=== PATIENT | male | born 1990 ===

== ENCOUNTER 2023-07-21 19:41 | Emergency (ER) | payer OTHER, SELFPAY ==
--- NOTE | ~2023-07-21 | US_ITS ---
EXAMINATION: US VENOUS ULTRASOUND WITH DOPPLER LOWER EXTREMITY, LEFT CLINICAL INFORMATION: Calf pain COMPARISON: None available. TECHNIQUE: Ultrasound of the deep veins is performed from the hip to the calf with compression sonography and color and pulse Doppler assessment. Spectral analysis with color-flow imaging is performed. FINDINGS: There is normal venous compression and respiratory variation and augmented flow. The visualized common femoral vein, superficial femoral vein, profunda femoral vein, popliteal vein, and the trifurcation region shows no evidence of deep venous thrombosis. There is no significant popliteal fossa cyst. If the patient's symptoms persist, followup ultrasound in 5 days 7 days might be of value to exclude proximal propagation from a non-visualized calf vein. US/US venous duplex LE LT IMPRESSION: No DVT demonstrated in the left lower extremity.
[2023-07-21 20:13] VITALS: BP 152/103; PULSE 82; RESP 18; TEMP 36.3; O2SAT 97; BMI 46.6
--- NOTE | 2023-07-21 20:19 | ED.GENADULT ---
HPI - General Adult General Chief complaint: Extremity Injury, Lower Stated complaint: Pain in left calf 3 days Time Seen by Provider: 07/21/23 20:57 Source: patient Mode of arrival: ambulatory Limitations: no limitations History of Present Illness HPI narrative: 33-year-old male came in for evaluation of left calf heating wave pain for the past 3 days, patient declined any trauma, no recent travel, no recent prolonged immobilization. No CP, no SOB. Related Data Allergies Allergy/AdvReac Type Severity Reaction Status Date / Time gabapentin [GABAPENTIN] Allergy Severe ANAPHYLAXIS Verified 07/21/23 20:13 shellfish derived Allergy Severe ANAPHYLAXIS Verified 07/21/23 20:13 [SHELLFISH DERIVED] codeine [CODEINE] Allergy Intermediate HALLUCINATI Verified 07/21/23 20:13 ON pregabalin [From LYRICA] Allergy Intermediate ANAPHYLAXIS Verified 07/21/23 20:13 Sulfa (Sulfonamide Allergy Intermediate RASH Verified 07/21/23 20:13 Antibiotics) [SULFA(SULFONAMIDE ANTIBIOTICS)] amoxicillin [AMOXICILLIN] Allergy Unknown RASH Verified 07/21/23 20:13 sulfamethoxazole Allergy Unknown RASH Verified 07/21/23 20:13 [From BACTRIM] trimethoprim [From BACTRIM] Allergy Unknown RASH Verified 07/21/23 20:13 Review of Systems Review of Systems: All other systems are reviewed and are negative Constitutional: Reports as per HPI and Reports no additional constitutional complaints Eyes: Reports as per HPI and Reports no additional eye complaints Reports system reviewed and no additional complaints, except as documented Cardiovascular: Reports as per HPI and Reports no additional cardiovascular complaints Respiratory: Reports as per HPI and Reports no additional respiratory complaints Gastrointestinal: Reports as per HPI and Reports no additional gastrointestinal complaints Genitourinary: Reports no additional female genitourinary complaints Musculoskeletal: Reports no additional musculoskeletal complaints Skin/Breast: Reports system reviewed and no additional complaints, except as docu Psychiatric: Reports no additional psychiatric complaints Endocrine: Reports no additional endocrine complaints Hematologic/Lymphatic: Reports no additional hematologic/lymphatic complaints Allergic/Immunologic: Reports no additional allergic/immunologic complaints Reports system reviewed and no additional complaints, except as documented and Reports Abnormal speech present [facility] Social History Social History Advance Directives: No Advance Directives Information Provided: No Physical Exam ED Vital Signs: Vital Signs - 24 hr 07/21/23 20:13 Temperature 97.3 F Pulse Rate 82 Respiratory Rate 18 Blood Pressure 152/103 H Pulse Oximetry 97 Oxygen Delivery Method Room Air BMI result Body Mass Index 46.6 Vital signs have been reviewed and appear to be correct. Blood pressure elevated. Heart rate normal. Respiratory rate normal. Temperature normal. Oxygen saturation normal. Appearance: Alert. Oriented X3. No acute distress. Head: Normal external exam. Normocephalic. Atraumatic. No Paiz signs noted. No raccoon eyes noted Eyes: PERRLA. EOMI. Conjunctiva and sclera normal. Eyelids normal. ENT: TM's Normal. Pharynx normal. Uvula midline. Moist mucous membranes. No trismus noted. No drooling noted. No muffled voice noted. Neck: Normal inspection. Neck supple. FROM. No adenopathy. Thyroid Normal. No meningeal signs. No neck mass noted. CVS: Normal heart rate and rhythm. Heart sound normal. No murmurs noted. Pulses normal throughout. Respiratory: No respiratory distress. Painless inspiration. Breath sounds normal. No wheezes/rales/rhonchi noted. Chest nontender. No accessory muscle usage noted or decreased air movement noted. Abdomen: Soft and nontender. Bowel sounds normal in all 4 quadrants. No distention noted. No organomegaly noted. No visible injury noted. Back: No CVA tenderness. Full range of motion noted. Skin: Skin warm and dry. Normal skin color. Normal skin turgor. No rashes/lesions/lacerations noted. Extremities: No lower extremity edema. Extremities exhibit normal range of motion. Extremities nontender. Neuro: Oriented X 3. Cranial nerve exam: II-XII are grossly intact No motor deficit. No sensory deficit. Reflexes normal. Course Course Course Narrative: This is an RME: Additional HPI, ROS, PE not included below will be deferred to primary provider. This is a [id number] presenting to the emergency department with a complaint of left calf pain x 3 days. No trauma, injury. Plan: US LLE Reevaluation(s) Reevaluation #1: Left calf pain for 3 days, no DVT on the ultrasound, no rhabdomyolysis. Time: 21:14 Medical Decision Making Differential Diagnosis Differential Diagnoses: The differential diagnosis associated with the presentation includes ( Left lower extremities DVT, rhabdomyolysis, electrolyte abnormality, severe anemia.) Admission/Observation Consideration of admission/observation: Escalation of care including admission/observation considered Lab Data MDM Lab Attestation statement: I reviewed the patient's lab results. 07/21/23 21:26 07/21/23 21:26 Labs: Lab Results 07/21/23 Range/Units 21:26 WBC 11.4 H (4.8-10.8) X10*3/uL RBC 4.85 (4.60-5.80) X10*6/uL Hgb 14.6 (14.0-18.0) g/dl Hct 42.9 (42.0-52.0) % MCV 88.5 (80.0-98.0) fL MCH 30.1 (27.0-33.0) pg MCHC 34.0 (31.0-36.0) g/dl RDW 13.3 (11.0-16.0) % Plt Count 303 (160-400) X10*3/uL MPV 10.0 (9.4-12.4) fL Immature Gran % (Auto) 0.3 (0.0-0.4) % Neut % (Auto) 53.7 (45-73) % Lymph % (Auto) 34.9 (20-40) % [place] % (Auto) 8.7 (2-11) % Eos % (Auto) 2.0 (0-4) % Baso % (Auto) 0.4 (0-2) % Lymph # (Auto) 4.0 (1.2-4.9) X10*3/uL [place] # (Auto) 1.0 (0.1-1.2) X10*3/uL Eos # (Auto) 0.2 (0.0-0.4) X10*3/uL Baso # (Auto) 0.0 (0.0-0.2) X10*3/uL Abs Immat Gran (auto) 0.03 (0.00-0.03) X10*3/uL Absolute Neuts (auto) 6.1 (2.0-8.3) x10*3/uL Absolute Nucleated RBC 0.000 (0.0-0.012) X10*3/uL Nucleated RBC % (auto) 0.0 (0.0-0.2) /100WBC Sodium 141 (135-145) mmol/L Potassium 3.8 (3.3-5.1) mmol/L Chloride 107 (96-108) mmol/L Carbon Dioxide 24 (22-29) mmol/L Anion Gap 14 (12-20) BUN 12 (9-16) mg/dL Creatinine 0.83 (0.5-1.4) mg/dL Estim Creat Clear Calc 157.0 Estimated GFR > 60 Random Glucose 86 (60-115) mg/dL Calcium 9.3 (8.4-10.2) mg/dL Total Creatine Kinase 118 (38-174) U/L Independent Interpretation I performed an independent interpretation of an: Ultrasound ( Left lower extremity ultrasound: No evidence of DVT.) Radiology Impression Discussion of test interpretation with radiology: I have reviewed the radiologist's reading. Discharge Plan Discharge Clinical Impression: Pain of left calf Patient Disposition: Home, Self-Care Instructions: Leg Pain (ED) Referrals: Everett Adam MD [Primary Care Provider] -
== END 2023-07-21 23:09 | disposition home or self-care (01) ==
PROVIDERS: Emergency Provider Emergency Medicine; PCP Family Medicine
DX: M79.662 Pain in left lower leg (principal)
CPT/HCPCS: 36415; 80048; 82550; 85025; 93971; 99282; 99284

== ENCOUNTER 2024-07-18 07:45 | Outpatient (AMB) | payer OTHER, SELFPAY ==
--- NOTE | 2024-07-18 08:01 | A.OFFVIS_ITS ---
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 Patient is not sure if it was due with an injury or just pain. Patient was referred by Neelima Beckett PA-C from [facility]. He states ongoing pain for a month and feels that it is getting worse. Patient tried taking pain medication with no relief. Allergies gabapentin [GABAPENTIN] Allergy (Severe, Verified 07/18/24 08:05) ANAPHYLAXIS shellfish derived [SHELLFISH DERIVED] Allergy (Severe, Verified 07/18/24 08:05) ANAPHYLAXIS codeine [CODEINE] Allergy (Intermediate, Verified 07/18/24 08:05) HALLUCINATION pregabalin [From LYRICA] Allergy (Intermediate, Verified 07/18/24 08:05) ANAPHYLAXIS Sulfa (Sulfonamide Antibiotics) [SULFA(SULFONAMIDE ANTIBIOTICS)] Allergy (Intermediate, Verified 07/18/24 08:05) RASH amoxicillin [AMOXICILLIN] Allergy (Unknown, Verified 07/18/24 08:05) RASH sulfamethoxazole [From BACTRIM] Allergy (Unknown, Verified 07/18/24 08:05) RASH trimethoprim [From BACTRIM] Allergy (Unknown, Verified 07/18/24 08:05) RASH HPI 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 The patient was seen by Neelima Beckett PA-C at [facility] on 06/09/24 for left knee pain, which has been worse for the past 3 weeks. He encountered an injury prior to the onset of the pain. An order for an MRI was placed for further evaluation and was referred to [facility]. While in the office today, the patient reports experiencing left knee pain for about a month and is getting worse. He has tried pain medications without any relief. He is uncertain whether the pain is due to an injury or simply pain. 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 No ecchymosis, erythema, or joint effusion. Full ROM. Slight tenderness to palpation along the medial and lateral aspect of the patella. NVI. Assessment & Plan Assessment & Plan (1) Contusion of left knee: Code(s): S80.02XA - Contusion of left knee, initial encounter Category: Medical Plan Mr Potts is a 34-year-old male who presents in the office today, as a new patient, for an evaluation of left knee pain. The patient was seen by Neelima Beckett PA-C at [facility] on 06/09/24 for left knee pain, which has been worse for the past 3 weeks. He encountered an injury prior to the onset of the pain. An order for an MRI was placed for further evaluation and was referred to [facility]. While in the office today, the patient reports experiencing left knee pain for about a month and is getting worse. He has tried pain medications without any r elief. He is uncertain whether the pain is due to an injury or simply pain. The patient was provided with a reaction knee brace, off the shelf today. We discussed the role of physical therapy; however, the patient declined at this time. He will contact the office should he have persistent pain without any improvement, and then I will place an order for PT. Follow-up will be PRN, or sooner if needed. X-rays of the left knee which were obtained while in the office today and were reviewed by me, Liat Parham PA-C, revealed: negative for any acute fracture or dislocation. MRI of the left knee, obtained on 07/18/24, revealed: 1. No evidence of meniscus or cruciate ligament tear. 2. Full-thickness chondral fissure in the inferior aspect of the lateral patellar facet with adjacent subchondral cyst and subchondral marrow edema. Orders: Orders XR knee RT 1V 07/18/24 M25.569 - Pain in unspecified knee PT Evaluation and Treatment Today S80.02XA - Contusion of left knee, initial encounter Patient Instructions: Scribed by Shaylee Oviedo, medical laboratory technician, for Liat Parham PA-C on 07/18/24 at 8:16 am EST. Coding Level of Care Code New Pt Level 3 (11796) Diagnoses Contusion of left knee S80.02XA
== END 2024-07-18 08:31 | disposition home or self-care (01) ==
PROVIDERS: PCP Family Medicine; Visit Provider Physician Assistant
DX: S80.02XA Contusion of left knee, initial encounter (principal)
CPT/HCPCS: 99203

== ENCOUNTER 2024-07-18 10:48 | Outpatient (REF) | payer OTHER, SELFPAY ==
--- NOTE | ~2024-07-18 | XR_ITS ---
EXAMINATION: XR KNEE, RIGHT CLINICAL INFORMATION: M25.569 - Pain in unspecified knee COMPARISON: None available. TECHNIQUE: Three views of the right knee. FINDINGS: No fracture or joint effusion. Alignment is anatomic. Joint spaces are maintained. No abnormal soft tissue calcification. XR/XR knee RT 1V IMPRESSION: Normal right knee. Electronically signed by: Ysabel Paz MD 09/24/2024 06:27 PM EST
--- NOTE | ~2024-07-18 | XR_ITS ---
EXAMINATION: XR KNEE LEFT 2 VIEWS CLINICAL INFORMATION: Pain in unspecified knee M25.569. COMPARISON: None available TECHNIQUE: Two views of the left knee. FINDINGS: No acute fracture or dislocation. No significant medial or lateral joint space narrowing. There is no evidence for osteochondral lesion. No joint effusion is observed. IMPRESSION: No acute process. Electronically signed by: Alexandro Saba MD 09/25/2024 11:58 AM SUZANNE
== END 2024-07-18 10:49 | disposition home or self-care (01) ==
LOC: HO.HOSX 10:48
PROVIDERS: Visit Provider Physician Assistant
DX: M25.569 Pain in unspecified knee (principal)
CPT/HCPCS: 73560; 73562

== ENCOUNTER 2025-09-06 20:14 | Emergency (ER) | payer OTHER, SELFPAY ==
--- NOTE | ~2025-09-06 | XR_ITS ---
CLINICAL HISTORY: chest pain 2 view chest x-ray Comparison: None provided Findings: No consolidation or pleural effusion. Normal size heart. No acute fracture. IMPRESSION: 1. No acute findings. This document has been electronically signed by: An Lopez MD on 09/06/2025 21:11:04
--- NOTE | 2025-09-06 20:17 | ECG_ITS ---
Test Reason : high blood pressure Blood Pressure : */* mmHG Vent. Rate : 80 BPM Atrial Rate : 80 BPM P-R Int : 178 ms QRS Dur : 88 ms QT Int : 378 ms P-R-T Axes : 46 56 67 degrees QTcB Int : 435 ms Normal sinus rhythm Normal ECG When compared with ECG of 29-Aug-2017 16:18, T wave inversion no longer evident in Inferior leads Referred By: Roxie Rojas Electronically Signed By: Sal Mclaughlin
[2025-09-06 20:32] VITALS: BP 183/123; PULSE 101; RESP 20; TEMP 37; O2SAT 95; BMI 45.5
--- NOTE | 2025-09-06 20:36 | ED_ITS ---
HPI - General Adult General Chief complaint: Chest Pain Stated complaint: CP, increased BP Time Seen by Provider: 09/06/25 21:32 Source: patient, RN notes reviewed and old records reviewed Mode of arrival: ambulatory Limitations: no limitations History of Present Illness ED Provider: Baldomero HPI narrative: 35-year-old male past medical history significant for obesity, hypertension presents for evaluation of high blood pressure. The patient reports that he has had high blood pressure for last 3 days. He reports on Sunday while at work his blood pressure was ?200/100. He states that he spoke to his primary doctor when he was sent home from work who had him increase his clonidine The patient reports that he also had metoprolol added to his regimen last month. The patient also endorses midsternal chest pain for the last 3 days as well. He complains of a mild headache. Denies any fevers, chills cough. Denies any elevation of the area Related Data Home Medications ?Medication ?Instructions ?Recorded ?Confirmed clonidine HCl 0.1 mg tablet 0.1 mg PO BID 07/18/24 clonidine HCl 0.2 mg tablet mg PO 07/18/24 epinephrine 0.3 mg/0.3 mL IM 07/18/24 injection, auto-injector lisinopril 30 mg tablet 30 mg PO DAILY 07/18/24 lorazepam 1 mg tablet 1 mg PO DAILY PRN 07/18/24 omeprazole 20 mg capsule,delayed 20 mg PO DAILY release Allergies Allergy/AdvReac Type Severity Reaction Status Date / Time gabapentin (GABAPENTIN) Allergy Severe ANAPHYLAXIS Verified 09/06/25 20:34 shellfish derived (SHELLFISH Allergy Severe ANAPHYLAXIS Verified 09/06/25 20:34 DERIVED) codeine (CODEINE) Allergy Intermediate HALLUCINATI Verified 09/06/25 20:34 ON pregabalin (From LYRICA) Allergy Intermediate ANAPHYLAXIS Verified 09/06/25 20:34 Sulfa (Sulfonamide Allergy Intermediate RASH Verified 09/06/25 20:34 Antibiotics) (SULFA(SULFONAMIDE ANTIBIOTICS)) amoxicillin (AMOXICILLIN) Allergy Unknown RASH Verified 09/06/25 20:34 sulfamethoxazole (From Allergy Unknown RASH Verified 09/06/25 20:34 BACTRIM) trimethoprim (From BACTRIM) Allergy Unknown RASH Verified 09/06/25 20:34 Review of Systems 2 Constitutional: Constitutional: Denies body ache(s), Denies chills, Denies fever(s) and Reports headache(s) Eyes: Eyes: Denies blurry vision ENT: Denies vertigo, Denies dizziness and Reports headache(s) Cardiovascular: Cardiovascular: Reports chest pain, Denies chest pain at rest and Denies dyspnea on exertion Respiratory: Respiratory: Denies cough and Denies dyspnea on exertion Gastrointestinal: Gastrointestinal: Denies abdominal pain, Denies nausea and Denies vomiting Musculoskeletal: Musculoskeletal: Denies back pain Integumentary/Breasts: Skin/Breast: Denies rash Neurologic: Denies vertigo, Denies dizziness and Reports headache(s) Psychiatric: Psychiatric: Reports anxiety PMFSH Social History Social History (Updated 07/18/24 @ 08:08 by Radha Menezes) Alcohol intake: never Patient Tobacco Use Status: Never used Tobacco Smoked in Last 30 Days: No Use of substances other than those prescribed or required for medical reasons: No Advance Directives: No Advance Directives Information Provided: No Current occupational status: employed 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 Exam ED Vital Signs: Vital Signs - 24 hr 09/06/25 20:32 09/06/25 21:35 Temperature 98.6 F Pulse Rate 101 H 85 Respiratory Rate 20 19 Blood Pressure 183/123 H 174/108 H Pulse Oximetry 95 95 Oxygen Delivery Method Room Air Room Air BMI result Body Mass Index 45.5 Const General: healthy appearing, comfortable, no acute distress, alert and awake Nutritional Appearance: well nourished Orientation/consciousness: patient oriented x3 HENMT Head: Yes normocephalic and Yes atraumatic Eyes Eyelids: Yes eyelids normal Conjunctivae: conjunctivae normal Sclerae: sclerae normal Corneas: corneas normal Pupils: Equal, round and reactive pupils present EOM: EOMs intact bilaterally Neck Neck: Yes full ROM Resp Effort & Inspection: normal respiratory effort, able to speak in complete sentences and not labored Skin General skin exam: elasticity normal Neuro General: patient oriented x3 Cranial nerves: Yes Equal, round and reactive pupils present and Yes Bilaterally intact EOM present Cognition (Neuro): normal cognition Extrem Other: Moving all extremities well without any obvious deformities Course Course Course Narrative: Rapid medical examination performed in triage by Roxie Rojas PA-C: Patient is a 35 year old assigned male at presenting to the emergency department with high blood pressure and chest pain. Detailed physical exam and review of systems are deferred to the tariff expert. EKG, labs, imaging ordered. Patient placed back in the waiting room pending room availability and results. Reevaluation(s) Reevaluation #1: Patient's workup largely unremarkable, EKG is normal sinus rhythm without ectopy or ischemia. Troponin undetectable despite 3 days of chest pain, he rules out for ACS. The remainder of his workup was also reassuring. The patient's blood pressure improved to 174/102 without any intervention. The patient is on amlodipine, lisinopril, clonidine and metoprolol for his blood pressure. I asked him to discuss this with his primary doctor and they can proceed with alterations as necessary. Time: 22:53 Medical Decision Making Medical Decision Making [facility] Narrative: 35-year-old male presents for evaluation of high blood pressure and chest pain. He reports he has had midsternal chest pain for few days. His chest pain is reproducible on exam. His EKG is normal sinus rhythm with a rate of [address] changes. He had labs that did not show any significant abnormalities. Has a slight leukocytosis to 11.5 without a left shift. No significant anemia. Chemistries are within normal limits, his troponin is undetectable despite 3 days of chest pain, he rules out for ACS. He had a chest x-ray that shows no pleural effusions or infiltrates to explain his chest pain. No one in mediastinum. He has no respiratory symptoms. The patient's blood pressure was initially 183/123 which improved to 170 4/108 without any intervention. I discussed this with the patient and he is already on a fairly extensive antihypertensive regimen with close follow up as he has had his meds adjusted twice in the last month and a half. We will defer medication changes to his primary doctor Differential Diagnosis Differential Diagnoses: The differential diagnosis associated with the presentation includes Hypertension High blood pressure Anxiety Chest pain ACS Lab Data [facility] Lab Attestation statement: I reviewed the patient's lab results. As above 09/06/25 21:34 09/06/25 21:34 Labs: Lab Results 09/06/25 09/06/25 Range/Units 21:14 21:34 WBC 11.5 H (4.8-10.8) X10*3/uL RBC 5.12 (4.60-5.80) X10*6/uL Hgb 15.4 (14.0-18.0) g/dl Hct 44.6 (42.0-52.0) % MCV 87.1 (80.0-98.0) fL MCH 30.1 (27.0-33.0) pg MCHC 34.5 (31.0-36.0) g/dl RDW 13.2 (11.0-16.0) % Plt Count 289 (160-400) X10*3/uL MPV 10.3 (9.4-12.4) fL Immature Gran % (Auto) 0.2 (0.0-0.4) % Neut % (Auto) 67.7 (45-73) % Lymph % (Auto) 25.5 (20-40) % [place]ccre[place] % (Auto) 5.5 (2-11) % Eos % (Auto) 0.8 (0-4) % Baso % (Auto) 0.3 (0-2) % Lymph # (Auto) 2.9 (1.2-4.9) X10*3/uL [place] # (Auto) 0.6 (0.1-1.2) X10*3/uL Eos # (Auto) 0.1 (0.0-0.4) X10*3/uL Baso # (Auto) 0.0 (0.0-0.2) X10*3/uL Abs Immat Gran (auto) 0.02 (0.00-0.03) X10*3/uL Absolute Neuts (auto) 7.8 (2.0-8.3) x10*3/uL Absolute Nucleated RBC 0.000 (0.0-0.012) X10*3/uL Nucleated RBC % (auto) 0.0 (0.0-0.2) /100WBC PT 12.2 (11.2-13.5) SEC INR 1.0 (0.9-1.1) Sodium 141 (135-145) mmol/L Potassium 4.0 (3.3-5.1) mmol/L Chloride 107 (96-108) mmol/L Carbon Dioxide 22 (22-29) mmol/L Anion Gap 16 (12-20) BUN 8 L (9-16) mg/dL Creatinine 0.84 (0.5-1.4) mg/dL Estim Creat Clear Calc 150.1 Estimated GFR > 60 Random Glucose 94 (60-115) mg/dL Calcium 8.8 (8.4-10.2) mg/dL Magnesium 2.2 (1.6-2.6) mg/dL Total Bilirubin 0.7 (0.0-1.0) mg/dL AST 33 (5-37) U/L ALT 32 (0-40) U/L Alkaline Phosphatase 73 (39-117) U/L Troponin I High Sens < 2.7 (<3.5-35.0) ng/L Total Protein 7.7 (6.5-8.0) g/dL Albumin 4.3 (3.5-5.0) g/dL Influenza Type A (PCR) NEGATIVE (Negative) Influenza Type B (PCR) NEGATIVE (Negative) RSV RNA Qual (PCR) NEGATIVE (Negative) SARS-CoV-2 RNA (RT-PCR) NEGATIVE (Negative) Independent Interpretation I performed an independent interpretation of an: EKG (Normal sinus rhythm with a rate of 80 beats minute) Discharge Plan Discharge Clinical Impression: Hypertension, Chest pain Patient Disposition: Home, Self-Care Instructions: Chest Pain (ED) Additional Instructions: Your workup in the ER today was reassuring. This includes your labs, chest x-ray, EKG Your blood pressure was slightly elevated. I recommend that you keep a log once per day inability of your blood pressure and follow up with your primary doctor. Prescriptions: No Action lisinopril 30 mg tablet 30 mg PO DAILY clonidine HCl 0.2 mg tablet PO clonidine HCl 0.1 mg tablet 0.1 mg PO BID lorazepam 1 mg tablet 1 mg PO DAILY PRN omeprazole 20 mg capsule,delayed release(DR/EC) 20 mg PO DAILY epinephrine 0.3 mg/0.3 mL auto-injector IM Print Language: Chinese
--- OUTSIDE RECORDS SUMMARY | 2025-09-06 21:12 | XMS_ITS | Clinical Summary ---
Author Organization [facility] Address [address] [place] [address] Phone Care Team Providers Care Astrochemist Name Role Phone Everett Adam MD Primary Care Provider [phone] Encounters Date Type Department Care Team Description 07/13/2025 Telephone [facility] [address] [facility] [address] [place] [address] Everett Adam MD from Last 3 Months Social History Tobacco Use Types Packs/Day Years Used Date Smoking Tobacco: Never Assessed Sex and Gender Information Value Date Recorded Sex Assigned at Not on file Legal Sex Male 2:01 PM EST Gender Identity Not on file Sexual Orientation Not on file Plan of Treatment Health Maintenance Due Date Last Done Comments Pneumococcal Vaccine: Pediatrics (0 to 5 Years) and At-Risk Patients (6 to 49 Years) (2 of 2 - PCV) 06/10/2015 06/10/2014 HPV Vaccines (1 - 3-dose SCDM series) 2017 DTaP,Tdap,and Td Vaccines (8 - Td or Tdap) 01/16/2021 01/16/2011, 05/31/2000, 03/16/1995, Additional history exists Depression Screening 10/15/2024 Cholesterol Screening (Lipid Panel) 06/10/2025 HIV Screening 06/10/2025 Hepatitis C Screening 06/10/2025 Hypertension/CHF/CAD Annual BMP Blood Test 06/10/2025 Social Influencers of Health Screening 06/10/2025 COVID-19 Vaccine ( season) 2025 Influenza Vaccine (#1) 2025 6, 07/31/2013, 09/24/2008, Additional history exists RSV Immunization Adult Patients (1 - 1-dose 75+ series) 2065 HIB Vaccines Completed 09/25/1991 IPV Vaccines Completed 03/16/1995, 09/14, 09/25/1991, Additional history exists MMR Vaccines Completed 03/16/1995, 06/13/1991 Meningococcal ACWY Vaccine Completed 09/24/2008 Hepatitis B Vaccines Completed 08/07/2013, 12/07/1998, 06/30/1998, Additional history exists Hepatitis A Vaccines Aged Out No long er eligible based on patient's age to complete this topic Meningococcal B Vaccine Aged Out No l onger eligible based on patient's age to complete this topic RSV Immunization Patients Under 20 months Aged Out No longer eligible based on patient's age to complete this topic Varicella Vaccines Aged Out No longer eligible based on patient's age to complete this topic Insurance [facility] Care Teams Astrochemist Relationship Specialty Start Date End Date Everett Adam MD [facility] [address] [place] [address] PCP - General Family Medicine 06/10/25
--- OUTSIDE RECORDS SUMMARY | 2025-09-06 21:13 | XMS_ITS | Clinical Summary ---
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 Active lisinopril (PRINIVIL,ZESTRI L) 30 MG tablet Take 30 mg by mouth daily. Active allopurinol (ZYLOPRIM) 100 MG tablet Take 100 mg by mouth daily. Active albuterol 90 mcg/actuation inhaler Inhale 2 puffs into the lungs every 4 (four) hours as needed. Active ibuprofen (ADVIL,MOTRIN) 800 MG tablet TAKE ONE TAB WITH FOOD BY MOUTH EVERY 8 HRS NEEDED FOR PAIN 01/30/2022 Active amitriptyline (ELAVIL) 10 MG tablet Take 10 mg by mouth. 08/17/2020 Active Active Problems No known active problems Immunizations Immunization Administration Dates Next Due COVID-19 (Pre-08/06) Moderna Vaccine, mRNA, PF 04/09/2022,11/19/2020,10/18/2020 COVID-19 (Pre-08/06) Pfizer Vaccine, mRNA, PF 07/14/2021,06/23/2021,06/23/2021 Influenza, Unspecified Formulation 08/27,08/24/2021,08/17/2020,2019 Family History Medical History Relation Comments Diabetes mellitus Father 2 Hypertension Father 2 Cancer Maternal Grandfather 2 Cancer Maternal Grandmother 2 Hypertension Mother 2 CV disease Paternal Grandfather 2 CV disease Paternal Grandmother 2 Stroke Paternal Grandmother 2 Hypertension Sibling 2 Relation Status Comments Father 1 Alive Father 2 Maternal Grandfather 1 Maternal Grandfather 2 Maternal Grandmother 1 Alive Maternal Grandmother 2 Mother 1 Alive Mother 2 Paternal Grandfather 1 Paternal Grandfather 2 Paternal Grandmother 1 Paternal Grandmother 2 Sibling 1 Sibling 2 Social History Tobacco Use Types Packs/Day Years Used Date Smoking Tobacco: Never Smokeless Tobacco: Never Education Answer Date Recorded Are you interested in more education? Not on kadie e 02/09/2023 Are you concerned about learning? Not on file 02/09/2023 No 02/09/2023 No 02/09/2023 Digital Access Answer Date Recorded No 2023 No 2023 Reliable internet access at home? Not on file 2023 Device with a working camera? Not on file Sex and Gender Information Value Date Recorded Sex Assigned at Male 06/22/2021 8:53 AM EDT Legal Sex Male 8:15 AM EST Gender Identity Male 06/22/2021 8:53 AM EDT Sexual Orientation Straight 06/22/2021 8: 53 AM EDT Last Filed Vital Signs Vital Sign Reading Time Taken Comments Blood Pressure 142/99 02/05/2022 9:09 AM EDT Pulse 70 02/05/2022 9:09 AM EDT Temperature 36.4 C (97.5 F) 02/05/2022 9:09 AM EDT Respiratory Rate 16 02/05/2022 9:09 AM EDT Oxygen Saturation 97% 02/05/2022 9:09 AM EDT Inhaled Oxygen Concentration - - Weight 122.5 kg (270 lb) 02/05/2022 9:09 AM EDT Height 165.1 cm (5' 5 ) 02/05/2022 9:09 AM EDT Body Mass Index 44.93 02/05/2022 9:09 AM EDT Plan of Treatment Health Maintenance Due Date Last Done Comments CREATININE LEVEL 1990 LIPID PANEL 1990 POTASSIUM LEVEL 1990 DEPRESSION SCREENING 2002 HEPATITIS C SCREENING 2008 HIV ONE-TIME SCREENING (18-65 YEARS) 2008 INFLUENZA VACCINE (#1) 2025 , 08/24/2021, 08/17/2020, Additional history exists COVID-19 VACCINE ( season) 2025 04/09/2022, 07/14/2021, 06/23/2021, Additional history exists Adult Td,Tdap Booster 04/07/2028 04/07/2018 , 01/16/2011, 05/31/2000 HIB VACCINES Completed 09/25/1991 MENINGOCOCCAL VACCINES (ACWY) Completed 09/24/2008, 09/24/2008 PNEUMOCOCCAL VACCINES (0-49 years) Aged Out 06/10/2014 No longer eligible based on patient's age to complete this topic SMOKING STATUS SCREENING (Once After 26 Yrs) Completed 02/05/2022 HEPATITIS A VACCINES Aged Out No long er eligible based on patient's age to complete this topic MENINGOCOCCAL VACCINES (B) Aged Out N o longer eligible based on patient's age to complete this topic Medical Devices Not on file Insurance [facility] PPO [employer]IG[employer] PPO CIGNA PPO Member Subscriber Plan / Payer (Ef fective 2020-Present) Name:Yoli Ramirezrick Relation to Subscriber:Self Name:James Delroy Payer ID:[id number] ([facility]) Type:PPO Address: [place] [id number] CIGNA PPO CIGNA PPO Member Subscriber Plan / Payer (Ef fective 2020-Present) Name:Delroy Ramirez Relation to Subscriber:Self Name:Delroy Ramirez Payer ID:[id number] ([employer] [facility]) Type:PPO Address: [place] [id number] [employer]IG[employer] PPO CIGNA PPO Care Teams Windmill Mechanic Relationship Specialty Start Date End Date Everett Adam MD [address] [place] [phone] PCP - General Family Medicine 12/01/19 Additional Source Comments The information contained in this document represents components of the legal health record. It is not the complete legal health record.[facility]
[2025-09-06 21:35] VITALS: BP 174/108; PULSE 85; RESP 19; O2SAT 95
[2025-09-06 21:42] LABS: MANUAL DIFF FLAG NO
[2025-09-06 21:43] LABS: Hematocrit 44.6 % (42.0-52.0); Hemoglobin 15.4 g/dl (14.0-18.0); Imm Gran Abs Auto 0.02 X10*3/uL (0.00-0.03); Imm Gran Pct Auto 0.2 % (0.0-0.4); Lymphocytes Absolute Auto 2.9 X10*3/uL (1.2-4.9); Mean Corpuscular HGB Conc 34.5 g/dl (31.0-36.0); Mean Corpuscular Hemoglobin 30.1 pg (27.0-33.0); Mean Corpuscular Volume 87.1 fL (80.0-98.0); NRBC Abs Auto 0.000 X10*3/uL (0.0-0.012); NRBC Pct Auto 0.0 /100WBC (0.0-0.2); Platelet Count 289 X10*3/uL (160-400); Red Blood Count 5.12 X10*6/uL (4.60-5.80); White Blood Count 11.5 X10*3/uL (4.8-10.8)
[2025-09-06 21:50] LABS: INTERNATIONAL NORM RATIO 1.0 (0.9-1.1); Prothrombin Time 12.2 SEC (11.2-13.5)
[2025-09-06 22:00] LABS: Alanine Aminotransferase 32 U/L (0-40); Albumin Level 4.3 g/dL (3.5-5.0); Alkaline Phosphatase 73 U/L (39-117); Anion Gap 16 (12-20); Aspartate Amino Transferase 33 U/L (5-37); Blood Urea Nitrogen 8 mg/dL (9-16); Calcium 8.8 mg/dL (8.4-10.2); Carbon Dioxide 22 mmol/L (22-29); Chloride 107 mmol/L (96-108); Creatinine Clr Calc Pharmacy 150.1; Estimated Glomerular Filt Rate > 60; Magnesium 2.2 mg/dL (1.6-2.6); Potassium 4.0 mmol/L (3.3-5.1); Sodium 141 mmol/L (135-145); Total Protein 7.7 g/dL (6.5-8.0)
--- NOTE | 2025-09-06 22:18 | PC.NURSE ---
Assumed care of pt, presents with chest pain and HTN, pt states that he feels pressure in the middle and left side of his chest, states that he just sitting down when the chest started, [id number], laying comfortably in the stretcher
[2025-09-06 22:19] LABS: Resp Syncy Virus RNA Qual PCR NEGATIVE (Negative); SARS COV2 PCR INHOUSE NEGATIVE (Negative)
--- NOTE | 2025-09-06 22:27 | MHC.EDTECH ---
ekg done [id number] unable to save it another one done at 2212
[2025-09-06 22:48] LABS: Troponin-I High Sensitivity < 2.7 ng/L (<3.5-35.0)
[2025-09-06 23:00] VITALS: BP 187/116; PULSE 73; RESP 15; O2SAT 99
[2025-09-06 23:08] VITALS: BP 187/116
[2025-09-07] VITALS: BP 171/112; PULSE 71; RESP 16; O2SAT 99
[2025-09-07 00:11] VITALS: BP 171/112; PULSE 71; RESP 16; TEMP 36.3; O2SAT 99
== END 2025-09-07 00:14 | disposition home or self-care (01) ==
PROVIDERS: Physician Assistant; Physician Assistant Medical; Emergency Provider Emergency Medicine; PCP Family Medicine
DX: R07.89 Other chest pain (principal); R51.9 Headache, unspecified; I10 Essential (primary) hypertension; Z03.818 Encounter for observation for suspected exposure to other biological agents ruled out; Z79.899 Other long term (current) drug therapy
CPT/HCPCS: 36415; 71046; 80053; 83735; 84484; 85025; 85610; 87637; 93005; 99283; 99285

== ENCOUNTER → 2025-09-06 20:17 | Outpatient (BNV) | payer OTHER, SELFPAY | PROVIDERS: Emergency Provider Emergency Medicine; PCP Family Medicine; Visit Provider Internal Medicine Cardiovascular Disease | DX: I10 Essential (primary) hypertension (principal) | CPT/HCPCS: 93010 ==

== ENCOUNTER → 2025-09-06 20:36 | Outpatient (BNV) | payer OTHER, SELFPAY | PROVIDERS: PCP Family Medicine; Visit Provider Student in an Organized Health Care Education/Training Program | DX: R07.9 Chest pain, unspecified (principal) | CPT/HCPCS: 71046 ==